=== PATIENT | male | born 1970 | race Caucasian/White ===

== ENCOUNTER → 2018-07-05 | Outpatient (CLI) | payer OTHER ==
--- NOTE | 2018-07-05 12:46 | KCIC ---
Examination: MRI of the left thyroid HISTORY: History of pain after running in the proximal hamstring region worse when sitting COMPARISON: None available Technique: Multiplanar, multisequence MR imaging of the left thigh was performed without contrast. FINDINGS: The left femoral head is within the acetabulum. The attachment of the hamstring tendons to the ischial tuberosity grossly appears intact. There is mild increased signal identified about the bilateral hamstring tendons at the site of attachment of the ischial tuberosities likely mild tendinosis , left greater than right. The hamstring tendon attachment of the ischial tuberosities appear intact. There is mild increased T2 signal identified at the site of attachment of the gluteal tendons to the greater trochanter likely mild tendinosis. The attachment of the iliopsoas tendon to the lesser trochanter, attachment of the rectus femoris tendon to the anterior-inferior iliac spine grossly appears intact. Mild joint space loss identified in the left hip joint. IMPRESSION: 1. Bilateral hamstring tendinosis at its attachment to the ischial tuberosity, left greater than right. 2. Mild gluteal tendinosis. 3. Mild degenerative changes left hip joint. Electronically signed by: Valdez Shah MD (07/05/2018 12:43 PM) [id number]
== END | disposition home or self-care (01) ==
LOC: KCIC MRI 11:26
PROVIDERS: ATTEND Physician Assistant
DX: S73.192A Other sprain of left hip, initial encounter (principal); M16.12 Unilateral primary osteoarthritis, left hip; X58.XXXA Exposure to other specified factors, initial encounter; Y93.89 Activity, other specified; Y92.89 Other specified places as the place of occurrence of the external cause; Y99.8 Other external cause status
CPT/HCPCS: 73718